=== PATIENT | female | born 1940 | race Caucasian/White ===

== ENCOUNTER 2017-10-26 06:32 | Outpatient (CLI) ==
[2015-01-19 18:59] VITALS: BMI 24.4
--- NOTE | 2017-10-26 09:50 | US ---
EXAM: Ultrasound bilateral carotid duplex HISTORY: Memory loss in dimension with carotid stenosis COMPARISON: None TECHNIQUE: Sonographic and color Doppler evaluation of the carotids were performed. FINDINGS: The right carotid is patent in appearance with mild atherosclerotic plaque visualized. The right ICA peak systolic velocity measures 80 cm/sec which is normal. The ICA / CCA peak systolic velocity ratio is 1.1 and ICA end-diastolic velocity is 20 cm/sec. Color Doppler flow and wave spectral analysis is normal. The left carotid is patent in appearance with mild atherosclerotic plaque visualized. The left ICA peak systolic velocity measures 70 cm/sec which is normal. The left ICA / CCA peak systolic velocity ratio is 1.0 and ICA end-diastolic velocity is 10 cm/sec. C olor Doppler flow and wave spectral analysis is unremarkable. Vertebral arteries demonstrate antegrade flow bilaterally. IMPRESSION: Mild bilateral sonographic atherosclerotic disease with no ultrasound are Doppler evidence of hemodyn amically significant stenosis.
--- NOTE | 2017-10-26 11:11 | ECHO2D ---
Date of Exam: 10/26/17 Ordering Physician: DR. KIRSTIN VYAS Room #: OP Reason for Echo: HYPERTENSION, CAD, SOB, FAMILY HX RIGHT CAROTID STENOSIS M-Mode Normal Adult Results LV Dimensions Normal Adult Results AoV Opening excursions >1.6 >1.6 LVEDD-base- 3.5-5.8 3.5 Ao root dimensions 2.0-3.7 3.0 LVESD-base- 3.1-4.6 L. Atrium dimensions 1.9-3.8 3.7 Post. Wall thickness 0.8-1.1 1.0 IV septum (thickness) 0.7-1.2 1.2 Post. Wall excursion 0.72-1.3 NORMAL Septal motion NORMAL Systolic motion R. Ventricular cavity 1.5-2.0 NORMAL LVEF 60% 58% Paradoxical septal wall motion NORMAL 2-D : 2-D M Mode Echocardiogram was performed using apical four chamber and left parasternal long and short axis views. Mitral, tricuspid and aortic valves appear to be normal. Contractility of the left ventricle seems to be normal, so is the cavity size. Left atrial cavity size and aortic root appear to be normal. There is no pericardial effusion. There is no thrombus noted in the left ventricular or left aortic cavity. No mitral valve prolapse noted. M-MODE: MV: CALCIFIC MITRAL VALVE ANNULUS AV: NORMAL TV: NORMAL PV: CHAMBER SIZE: NORMAL WALL MOTION: NORMAL PERICARDIUM: NORMAL INTERPRETATION: 1. CALCIFIC MITRAL VALVE ANNULUS 2. NORMAL VALVES 3. NORMAL LEFT VENTRICULAR CONTRACTILITY 4. NORMAL LEFT VENTRICLE AND LEFT ATRIAL SIZE MTDD
== END 2017-10-26 06:33 | disposition home or self-care (01) ==
LOC: CAR 06:32
PROVIDERS: ATTEND Internal Medicine
DX: R06.02 Shortness of breath (principal); I10 Essential (primary) hypertension; R41.3 Other amnesia; I65.29 Occlusion and stenosis of unspecified carotid artery; F03.90 Unspecified dementia, unspecified severity, without behavioral disturbance, psychotic disturbance, mood disturbance, and anxiety; Z82.49 Family history of ischemic heart disease and other diseases of the circulatory system